=== PATIENT | female | born 1980 | race Caucasian/White ===

== ENCOUNTER 2017-10-03 23:04 | Inpatient (IN) | payer MEDICAID ==
[~2017-10-03] VITALS: Ht 165.1 cm; Wt 72.3 kg
[2017-10-03 23:48] VITALS: BP 106/81
[2017-10-04] MEDS: ZOLPIDEM TARTRATE 10 MG TABLET PO PRN ×2 (00:39→20:43)
[2017-10-04 08:23] VITALS: BP 117/64
[2017-10-04 08:38] LABS: BASOPHILS % (AUTO) 0.5 % (0.0-2.0); EOSINOPHILS % (AUTO) 3.1 % (1.0-6.0); HEMATOCRIT 39.6 % (36-46); HEMOGLOBIN 13.5 g/dL (12.0-16.0); LYMPHOCYTES # (AUTO) 2.6 K/uL (1.0-4.8); LYMPHOCYTES % (AUTO) 44.6 % (22.0-44.0); MEAN CORPUSCULAR HEMOGLOBIN 31.8 pg (26.0-34.0); MEAN CORPUSCULAR HGB CONC 34.1 G/dL (31.0-37.0); MEAN CORPUSCULAR VOLUME 93 fL (80-100); MONOCYTES # (AUTO) 0.6 K/uL (0.1-1.0); MONOCYTES % (AUTO) 10.8 % (2.0-9.0); NEUTROPHILS # (AUTO) 2.4 K/uL (1.8-7.7); PLATELET COUNT (AUTO) 263 K/uL (150-450); RED BLOOD CELL COUNT(AUTO) 4.25 MIL/uL (4.00-5.20)
[2017-10-04 08:54] LABS: HEMOGLOBIN A1C 5.1 % (4.5-6.2)
[2017-10-04] MEDS: FLUoxetine HCL 20 MG CAPSULE PO SCH ×2 (09:15→10:12)
[2017-10-04 09:33] LABS: ALANINE AMINOTRANSFERASE 39 U/L (12-78); ALBUMIN 3.1 g/dL (3.4-5.0); ALKALINE PHOSPHATASE 171 U/L (46-116); ANION GAP 6 mmol/L (8-16); ASPARTATE AMINOTRANSFERASE 36 U/L (15-37); BILIRUBIN,TOTAL 0.3 mg/dL (0.1-1.0); CALCIUM, TOTAL 8.3 mg/dL (8.8-10.5); CARBON DIOXIDE 29 mmol/L (22-29); CHLORIDE 108 mmol/L (98-107); CHOL/HDL RATIO 2.3 (3.9-5.7); CHOLESTEROL 86 mg/dL (131-200); CREATININE 0.75 mg/dL (0.60-1.30); FREE T4 (FREE THYROXINE) 1.06 ng/dL (0.76-1.46); GLOMERULAR FILTR. RATE CALC > 60 mL/min (>60); GLUCOSE,RANDOM 81 mg/dL (70-110); HCG,QUANTITATIVE 1 mIU/mL (0-6); HDL CHOLESTEROL 38 mg/dL (40-60); LDL CHOL (CALC.) 40 mg/dL (0-130); SODIUM SERUM 143 mmol/L (136-145); THYROID STIMULATING HORMONE 1.26 uIU/mL (0.36-3.74); TOTAL PROTEIN, SERUM 5.7 g/dL (6.4-8.2); TRIGLYCERIDES 41 mg/dL (15-150); UREA NITROGEN, BLOOD 14 mg/dL (7-18)
[2017-10-04] MEDS: LORazepam 2 MG TABLET PO PRN ×2 (13:32→20:44)
[2017-10-04] MEDS ORDERED: IBUPROFEN 400 MG TABLET PO PRN (14:00)
[2017-10-04] MEDS ORDERED: ACETAMINOPHEN 325 MG TABLET PO PRN (14:00)
[2017-10-05 00:13] VITALS: BP 113/75
[2017-10-05 08:22] VITALS: BP 100/55
[2017-10-05] MEDS: FLUoxetine HCL 20 MG CAPSULE PO SCH (09:00)
[2017-10-05 12:15] VITALS: BP 148/81
[2017-10-05] MEDS: LORazepam 2 MG TABLET PO PRN ×2 (12:16→17:21)
[2017-10-05 16:27] VITALS: BP 122/60
[2017-10-06 08:20] VITALS: BP 108/70
[2017-10-06] MEDS: FLUoxetine HCL 20 MG CAPSULE PO SCH (09:00)
[2017-10-06] MEDS: TOPIRAMATE 25 MG TABLET PO SCH (10:36)
[2017-10-06] MEDS: LORazepam 2 MG TABLET PO PRN ×2 (10:43→20:19)
[2017-10-06 16:08] VITALS: BP 107/70
[2017-10-07 04:13] VITALS: BP 110/70
[2017-10-07] MEDS: LORazepam 2 MG TABLET PO PRN ×2 (04:15→09:06)
[2017-10-07 08:42] VITALS: BP 110/64
[2017-10-07] MEDS: TOPIRAMATE 25 MG TABLET PO SCH (09:06)
[2017-10-07] MEDS ORDERED: TOPI25 PO (11:27)
[2017-10-08 08:31] LABS: AMPHET/METH SCREEN,URINE POSITIVE (NEGATIVE); BARBITURATE SCREEN, URINE NEGATIVE (NEGATIVE); BENZODIAZEPINES SCREEN,URINE NEGATIVE (NEGATIVE); CANNABINOID SCREEN,URINE POSITIVE (NEGATIVE); COCAINE SCREEN,URINE NEGATIVE (NEGATIVE); METHADONE SCREEN, URINE NEGATIVE (NEGATIVE); OPIATE SCREEN,URINE NEGATIVE (NEGATIVE)
[2017-10-08 08:32] LABS: PHENCYCLIDINE SCREEN,URINE NEGATIVE (NEGATIVE)
[2017-10-08 08:42] LABS: BILIRUBIN,URINE NEGATIVE (NEGATIVE); GLUCOSE, URINE (UA) NEGATIVE (NEGATIVE); KETONES,URINE NEGATIVE (NEGATIVE); LEUKOCYTE ESTERASE ,URINE SMALL (NEGATIVE); NITRATE,URINE NEGATIVE (NEGATIVE); OCCULT BLOOD,URINE LARGE (NEGATIVE); PH,URINE 5.5 (5.0-8.0); PROTEIN,URINE TRACE (NEGATIVE); UROBILINOGEN,URINE 0.2 mg/dL (<=1.0)
[2017-10-08 09:24] LABS: APPEARANCE,URINE HAZY (CLEAR)
[2017-10-08 09:55] LABS: RBC,URINE 0-2 /HPF (0-2)
[2017-10-08 09:56] LABS: BACTERIA,URINE Few /HPF (None Seen); CALCIUM OXALATE CRYSTALS,UR Few /LPF (None Seen); SQUAMOUS EPITHELIAL CELL,UR Moderate /LPF (None Seen)
[2017-10-11] MEDS ORDERED: FLUO-191 PO (12:48)
== END 2017-10-07 14:45 | disposition home or self-care (01) | DRG 751 ==
LOC: B3A 23:29 → EDSTATUS 23:31
PROVIDERS: ADMIT Psychiatry & Neurology Child & Adolescent Psychiatry; ATTEND Psychiatry & Neurology Child & Adolescent Psychiatry
DX: F33.2 Major depressive disorder, recurrent severe without psychotic features (principal); E44.0 Moderate protein-calorie malnutrition; R45.851 Suicidal ideations; F41.9 Anxiety disorder, unspecified; F10.10 Alcohol abuse, uncomplicated; F19.10 Other psychoactive substance abuse, uncomplicated; R00.0 Tachycardia, unspecified; Z71.41 Alcohol abuse counseling and surveillance of alcoholic; Z71.51 Drug abuse counseling and surveillance of drug abuser; Z68.26 Body mass index [BMI] 26.0-26.9, adult
CPT/HCPCS: 83036; 84439; 84443; 87081; 99285

== ENCOUNTER 2017-11-25 01:43 | Emergency (ER) | payer MEDICAID ==
[~2017-11-25] VITALS: Ht 165.1 cm; Wt 70.5 kg
[~2017-11-25 01:43] MED LIST: FLUO-191 PO; TOPI25 PO
[2017-11-25 02:46] LABS: AMPHET/METH SCREEN,URINE POSITIVE (NEGATIVE); BARBITURATE SCREEN, URINE NEGATIVE (NEGATIVE); BENZODIAZEPINES SCREEN,URINE NEGATIVE (NEGATIVE); CANNABINOID SCREEN,URINE POSITIVE (NEGATIVE); COCAINE SCREEN,URINE NEGATIVE (NEGATIVE); METHADONE SCREEN, URINE NEGATIVE (NEGATIVE); OPIATE SCREEN,URINE NEGATIVE (NEGATIVE)
[2017-11-25 02:49] LABS: PHENCYCLIDINE SCREEN,URINE NEGATIVE (NEGATIVE)
[2017-11-25 02:53] LABS: BASOPHILS % (AUTO) 0.5 % (0.0-2.0); HEMATOCRIT 43.4 % (36-46); HEMOGLOBIN 14.8 g/dL (12.0-16.0); LYMPHOCYTES # (AUTO) 3.1 K/uL (1.0-4.8); LYMPHOCYTES % (AUTO) 38.1 % (22.0-44.0); MEAN CORPUSCULAR HEMOGLOBIN 31.5 pg (26.0-34.0); MEAN CORPUSCULAR VOLUME 93 fL (80-100); MONOCYTES # (AUTO) 0.7 K/uL (0.1-1.0); MONOCYTES % (AUTO) 8.7 % (2.0-9.0); NEUTROPHILS % (AUTO) 49.7 % (40.0-70.0); PLATELET COUNT (AUTO) 291 K/uL (150-450); RED BLOOD CELL COUNT(AUTO) 4.69 MIL/uL (4.00-5.20); RED CELL DISTRIBUTION WIDTH 13.6 % (11.5-14.5)
[2017-11-25 03:01] LABS: ANION GAP 11 mmol/L (8-16); CALCIUM, TOTAL 8.7 mg/dL (8.8-10.5); CARBON DIOXIDE 25 mmol/L (22-29); CHLORIDE 105 mmol/L (98-107); CREATININE 0.72 mg/dL (0.60-1.30); GLOMERULAR FILTR. RATE CALC > 60 mL/min (>60); GLUCOSE,RANDOM 82 mg/dL (70-110); POTASSIUM 3.6 mmol/L (3.5-5.1); SODIUM SERUM 141 mmol/L (136-145); UREA NITROGEN, BLOOD 9 mg/dL (7-18)
[2017-11-25 03:07] LABS: ALANINE AMINOTRANSFERASE 42 U/L (12-78); ALBUMIN 3.4 g/dL (3.4-5.0); ALKALINE PHOSPHATASE 156 U/L (46-116); ASPARTATE AMINOTRANSFERASE 40 U/L (15-37); BILIRUBIN,TOTAL 0.4 mg/dL (0.1-1.0); LIPASE 142 U/L (73-393); TOTAL PROTEIN, SERUM 6.6 g/dL (6.4-8.2)
[2017-11-25 05:25] VITALS: BP 106/63
== END 2017-11-25 05:29 | disposition home or self-care (01) ==
LOC: EMS 01:44
DX: S00.83XA Contusion of other part of head, initial encounter (principal); R60.0 Localized edema; F41.9 Anxiety disorder, unspecified; F31.9 Bipolar disorder, unspecified; F17.210 Nicotine dependence, cigarettes, uncomplicated; Y04.0XXA Assault by unarmed brawl or fight, initial encounter; Y93.89 Activity, other specified; Y92.89 Other specified places as the place of occurrence of the external cause; Y99.8 Other external cause status
CPT/HCPCS: 36415; 70450; 70486; 72125; 80053; 80307; 83690; 84703; 85025; 99285; G0480